=== PATIENT | female | born 1990 | race Caucasian/White ===

== ENCOUNTER 2021-03-12 06:00 | Inpatient (IN) | payer OTHER ==
[~2021-03-12] VITALS: Ht 162.6 cm; Wt 63.5 kg
[~2021-03-12 06:00] MED LIST: BACTRIM DS TAB1 EACH PO; PYRIDIUM200 MG PO
[2021-03-12 06:31] LABS: HEMOGLOBIN 10.3 gm/dl (12.3-15.3); RED BLOOD COUNT 3.95 M/UL (4.00-5.10); WHITE BLOOD COUNT 13.3 K/UL (4.5-11.0)
[2021-03-12] MEDS ORDERED: MACROBID 100 M100 MG PO (06:56)
[2021-03-12] MEDS ORDERED: FEROSUL325 MG PO ×2 (06:57→09:05)
[2021-03-12] MEDS ORDERED: SUBUTEX 8 MG TAB8 MG SL (06:59)
[2021-03-12] MEDS ORDERED: IBUPROFEN600 MG PO (09:05)
[2021-03-12] MEDS ORDERED: DOCUSATE SODIU250 MG PO (09:05)
[2021-03-12] MEDS ORDERED: HYDROCODONE-AC1 EACH PO (09:05)
[2021-03-13 05:37] LABS: HEMOGLOBIN 9.8 gm/dl (12.3-15.3)
[2021-03-15] MEDS ORDERED: BUPRENORPHIN-N1 EACH SL (12:02)
== END 2021-03-15 16:42 | disposition home or self-care (01) | DRG 787 ==
LOC: OB 06:00 → CDU 03-13 12:23 → OB 03-13 12:24
PROVIDERS: ADMIT Obstetrics & Gynecology
PROC: 4A1HXCZ Monitoring of Products of Conception, Cardiac Rate, External Approach (ICD-10-PCS; 2021-03-12)
PROC: 10D00Z1 Extraction of Products of Conception, Low, Open Approach (ICD-10-PCS; principal; 2021-03-12 07:30)
DX: O99.324 Drug use complicating childbirth (principal); O98.42 Viral hepatitis complicating childbirth; F11.10 Opioid abuse, uncomplicated; Z3A.39 39 weeks gestation of pregnancy; Z37.0 Single live birth; O34.211 Maternal care for low transverse scar from previous cesarean delivery; O99.334 Smoking (tobacco) complicating childbirth; F17.210 Nicotine dependence, cigarettes, uncomplicated; B19.20 Unspecified viral hepatitis C without hepatic coma
CPT/HCPCS: 36415; 80307; 81001; 85014; 85018; 85025; C9113; J0690; J1170; J1885; J2250; J2274; J2370; J2590; J2704; J7120